=== PATIENT | male | born 1975 | race African-American/Black ===

== ENCOUNTER 2021-04-06 01:25 | Emergency (ER) | payer SELFPAY ==
[~2021-04-06] VITALS: Ht 172.7 cm; Wt 83.9 kg
[2021-04-06 01:39] VITALS: BP 136/73
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
== END 2021-04-06 05:01 | disposition home or self-care (01) ==
LOC: ER 01:32
DX: Z53.21 Procedure and treatment not carried out due to patient leaving prior to being seen by health care provider (principal); G89.29 Other chronic pain; M79.604 Pain in right leg